=== PATIENT | male | born 1940 | race Caucasian/White ===

== ENCOUNTER 2020-05-05 07:53 | Emergency (ER) | payer OTHER, MEDICARE ==
--- NOTE | 2020-05-05 13:11 | ER ---
REASON FOR EMERGENCY ROOM VISIT: Fever, diarrhea and weakness. HISTORY: This 79-year-old man who has previously been reasonably healthy, was brought in by his daughter with a 3-day history of fever as high as 103 degrees at home along with loose stools and some weakness. He started feeling somewhat punk 3 days ago and subsequently developed some loose stools. He was subsequently noted to have a fever yesterday as high as 103 degrees. It is unclear as to how often he had his loose stools, but he has been eating and drinking throughout all of this with no nausea or vomiting. Because of his illness, he has been more weak than usual and even when he has been well as of late over the past year or so, he has had more of a tendency of fall and to suffer minor falls while at home, although he has never injured himself as a result of these. He did suffer a fall yesterday and hit his forehead and he has had a mild headache in that area ever since. At this time, he states he feels perhaps a little bit better, but he still has some low-grade fever and weakness. It appears that his diarrhea may be slowing down a bit. He has not had any cough or chest pain or other respiratory symptoms. He has had some myalgias. He does have a questionable history of possible cerebrovascular disease as he has suffered what sounds like may have been TIAs a few years ago. Because of these episodes, it was recommended to him that he have a noninvasive carotid study, but he apparently did not follow through with this and did not want to have the test performed. He and his family have done some traveling locally and were camping a week or two ago. No one else in that group has been ill. He has not traveled outside of the [facility]. He has not had any lateralizing weakness or paralysis. He denies any numbness. PAST MEDICAL HISTORY: 1. TIAs as mentioned above. 2. History of appendectomy. 3. Hypercholesterolemia. MEDICATIONS: Reviewed. Please see electronic medical record. They include: 1. Finasteride. 2. Tamsulosin. 3. Simvastatin. ALLERGIES: NONE TO MEDICATIONS. SOCIAL HISTORY: He is retired. Lives with his . He does not smoke or drink. PHYSICAL EXAMINATION: GENERAL: He is reasonably alert. He is somewhat sleepy, but does answer questions appropriately. VITAL SIGNS: Temperature is 38.1, pulse is 80, blood pressure 120/59, O2 sats 94% on room air. Orthostatic blood pressures were checked and there was no significant drop. See nurse's documentation. HEENT: Head is normocephalic and atraumatic. There is no ecchymosis or edema or tenderness. TMs appear to be scarred. No acute process is evident. Oropharynx is normal. Eyes, pupils equally round and reactive to light. No conjunctival injection or scleral icterus. NECK: Supple. No adenopathy. No JVD. He does have a soft left-sided carotid bruit. CHEST: Clear to auscultation with good air exchange bilaterally and no wheezes, rhonchi, or rales. CARDIAC: Regular rate without murmur. ABDOMEN: Seems mildly distended, but is soft. Bowel sounds are present. Nontender. No palpable masses. No guarding or rebound. EXTREMITIES: Normal pulses. No edema. No deformities. Good perfusion with no cyanosis is noted. NEUROLOGIC: Cranial nerves 2 through 12 intact. Muscle strength, bulk, and tone are normal and symmetrical bilaterally in the upper and lower extremities. Patellar reflexes are normal and symmetrical bilaterally. Station and gait were not tested. LABORATORY DATA: His CBC shows a WBC of 4300 with a hemoglobin of 14.1. His platelet count is somewhat low at 106,000. His CMP reveals no significant abnormalities with a sodium of 135 and a mild hypokalemia at 3.3. His CO2 content is 33.9. His glucose is 112. His calcium is 8.0. Liver enzymes are normal. His albumin is 2.9. His UA is unremarkable except he does have some proteinuria. A swab for influenza was negative as was a swab for COVID-19. IMAGING: Because of his falling down and confusion, we went ahead and did a CT scan of his head and no acute abnormalities were found. There is some evidence of cortical atrophy. IMPRESSION: 1. Probable viral illness with fever and loose stools. 2. History of possible transient ischemic attacks with carotid bruit. 3. History of falling down. PLAN: I recommended to the patient and his daughter that he stay on clear liquids. Things like Gatorade or fruit juices are good idea. He should avoid solids for now until his appetite returns and his bowel movements begin to normalize. They can go ahead and treat his fever with ibuprofen or Tylenol, preferably the latter. I think it would be sensible to have him be followed up by Dr. Chairez, and repeat a COVID test would be a good idea. I did discuss briefly the suggestion that a walker be considered going forward with his daughter. All questions were answered. They understand and agree with this plan. IRMA /[id number]
--- NOTE | 2020-05-06 08:44 | CR ---
DATE OF SERVICE: 05/05/20 CLINICAL DATA: fever PA AND LATERAL CHEST: Comparison made to a prior exam dated 12/04/15. The heart size is within normal limits. There is calcification of the aortic arch. There are densities in both lung bases consistent with basilar atelectasis or infiltrate. Pneumonia should be considered. The lungs are otherwise clear. No pneumothorax. No pleural effusions. [id number] [facility]
--- NOTE | 2020-05-06 09:09 | CT ---
DATE OF SERVICE: 05/05/20 CLINICAL DATA: mental status change UNENHANCED BRAIN CT: Multislice acquisition acquisition without IV contrast was performed. There is mild diffuse cerebral atrophy. There are periventricular lucencies bilaterally consistent with small vessel ischemic change. No masses or mass effect. No intracranial hemorrhage. No evidence of acute or subacute infarct. No osseous abnormalities. IMPRESSION: No acute intracranial abnormalities. [id number] [facility]
== END 2020-05-05 11:21 | disposition home or self-care (01) ==
LOC: LB.ED 07:53
DX: R50.9 Fever, unspecified (principal); R19.7 Diarrhea, unspecified; E78.00 Pure hypercholesterolemia, unspecified; Z86.73 Personal history of transient ischemic attack (TIA), and cerebral infarction without residual deficits; Z91.81 History of falling; Z20.828 Contact with and (suspected) exposure to other viral communicable diseases
CPT/HCPCS: 36415; 70450; 71046; 80053; 81001; 85025; 87804; 87804-59; 99283; 99285-25; U0002

== ENCOUNTER 2020-05-15 16:11 | Emergency (ER) | payer OTHER, MEDICARE ==
--- NOTE | 2020-05-15 18:07 | EDM.PDOC ---
ED HPI GENERAL MEDICAL PROBLEM - General Chief Complaint: General Stated Complaint: FEVER WEAKNESS Time Seen by Provider: 05/15/20 17:45 Source of Information: Reports: Patient History Limitations: Reports: No Limitations - History of Present Illness INITIAL COMMENTS - FREE TEXT/NARRATIVE: pt evaluated in the ER for fever and weakness in the setting of Covid19 pandemic, symptoms have been ongoing for 12 days. he arrives with daughter to also provides history. pt was seen in late april and pt was thought to have a viral syndrome at the time. pt states fever, chills, body aches, generalized weakness. daughter states intermittent confusion. Tmax 102 at home. pt denies cough, SOB, pain, lightheadedness, dysuria, hematuria, visual changes, rash. Onset Date: 06/02/19 - Related Data Allergies Allergy/AdvReac Type Severity Reaction Status Date / Time No Known Allergies Allergy Verified 05/05/20 09:40 Home Meds: Home Meds Finasteride 5 mg PO DAILY 05/05/20 [History] Simvastatin [Zocor] 40 mg PO DAILY 05/05/20 [History] Tamsulosin [Tamsulosin 24 Hr] 0.4 mg PO DAILY 05/05/20 [History] Doxycycline [Vibra-Tabs] 100 mg PO Q12HR 10 Days #20 tab 05/15/20 [Rx] Past Medical History Cardiovascular History: Reports: None Respiratory History: Reports: None Gastrointestinal History: Reports: None Genitourinary History: Reports: Prostate Disorder Musculoskeletal History: Reports: Fracture Other Musculoskeletal History: Left shoulder dislocation with clavicle fracture around the age of 41. Neurological History: Reports: None, TIA Endocrine/Metabolic History: Reports: None Oncologic (Cancer) History: Reports: None - Past Surgical History GI Surgical History: Reports: Appendectomy Other Neurological Surgeries/Procedures: ? TIA: approximately one year ago Musculoskeletal Surgical History: Reports: Other (See Below) Other Musculoskeletal Surgeries/Procedures:: back surgery, hand surgery Social & Family History - Family History Family Medical History: Noncontributory - Tobacco Use Smoking Status *Q: Never Smoker Second Hand Smoke Exposure: No - Caffeine Use Caffeine Use: Reports: Coffee - Recreational Drug Use Recreational Drug Use: No ED ROS GENERAL - Review of Systems Review Of Systems: Comprehensive ROS is negative, except as noted in HPI. ED EXAM, GENERAL - Physical Exam Exam: See Below Exam Limited By: No Limitations General Appearance: Alert, WD/WN, No Apparent Distress Eye Exam: Bilateral Eye: EOMI, PERRL Ear Exam: Bilateral Ear: Auricle Normal, Canal Normal, TM normal Nose: Normal Inspection Throat/Mouth: Normal Inspection Head: Atraumatic, Normocephalic Neck: Normal Inspection, Non-Tender Respiratory/Chest: No Respiratory Distress, Lungs Clear, Normal Breath Sounds, No Accessory Muscle Use Cardiovascular: Normal Peripheral Pulses, No Edema, No Gallop, No Murmur, No Rub Peripheral Pulses: 2+: Radial (L), Radial (R), Posterior Tibial (L), Posterior Tibial (R) GI/Abdominal: Normal Bowel Sounds, Soft, Non-Tender, No Organomegaly Extremities: Normal Inspection, Normal Range of Motion, Non-Tender, No Pedal Edema Neurological: Alert, Oriented, CN II-XII Intact, Normal Cognition Psychiatric: Normal Affect, Normal Mood Skin Exam: Warm, Dry, Intact Lymphatic: No Adenopathy Course - Vital Signs Last Recorded V/S: Last Vital Signs Temp 98.7 F 05/15/20 19:09 Pulse 94 05/15/20 19:09 Resp 18 05/15/20 19:09 BP 115/68 05/15/20 19:09 Pulse Ox 96 05/15/20 19:09 - Orders/Labs/Meds Orders: Active Orders 24 hr Category Date Time Status Chest 1V Frontal [CR] Stat Exams 05/15/20 17:55 Taken CULTURE BLOOD [BC] Stat Lab 05/15/20 18:23 Received Labs: Laboratory Tests 05/15/20 05/15/20 05/15/20 Range/Units 16:55 17:55 17:55 WBC 6.9 D (4.0-11.0) K/uL RBC 4.57 (4.50-6.50) M/uL Hgb 14.6 (13.0-18.0) g/dL Hct 42.9 (40.0-54.0) % MCV 94 (76-96) fL MCH 31.9 (27.0-32.0) pg MCHC 34.0 (31.0-35.0) g/dL RDW 13.6 (11.0-16.0) % Plt Count 230 D (150-400) K/uL MPV 8.2 (6.0-10.0) fL Neut % (Auto) 82.0 H (45.0-70.0) % Lymph % (Auto) 11.5 L (20.0-40.0) % [place] % (Auto) 5.5 (3.0-10.0) % Eos % (Auto) 0.1 L (1.0-5.0) % Baso % (Auto) 0.9 H (0.0-0.5) % Neut # (Auto) 5.65 (2.00-7.50) K/uL Lymph # (Auto) 0.79 L (1.50-4.00) K/uL [place] # (Auto) 0.38 (0.20-0.80) K/uL Eos # (Auto) 0.01 L (0.04-0.40) K/uL Baso # (Auto) 0.06 (0.02-0.10) K/uL ESR (0-20) mm/hr Sodium 134 L (136-145) mmol/L Potassium 3.9 (3.5-5.1) mmol/L Chloride 101 (98-107) mmol/L Carbon Dioxide 23.6 D (21.0-32.0) mmol/L Anion Gap 13.3 (5.0-15.0) mmol/L BUN 12 D (8-26) mg/dL Creatinine 0.97 (0.70-1.30) mg/dL Est Cr Clr Drug Dosing 54.60 mL/min Estimated GFR (MDRD) > 60 (>60) MLS/MIN BUN/Creatinine Ratio 12.4 (6-25) Glucose 104 H (74-100) mg/dL Calcium 8.2 L (8.5-10.1) mg/dL Total Bilirubin 0.5 (0.0-1.0) mg/dL AST 18 (15-37) U/L ALT 58 (12-78) U/L Alkaline Phosphatase 56 (46-116) U/L Lactate Dehydrogenase (85-227) U/L C-Reactive Protein 15.7 H (0.0-3.0) mg/L Total Protein 7.0 (6.4-8.2) g/dL Albumin 3.1 L (3.4-5.0) g/dL Globulin 3.9 (2.2-4.2) g/dL Albumin/Globulin Ratio 0.8 (0.8-2.0) Urine Color Urine Appearance (CLEAR) Urine pH (5.0-8.0) Ur Specific [place] (1.003-1.030) Urine Protein (NEGATIVE) mg/dL Urine Glucose (UA) (NEGATIVE) mg/dL Urine Ketones (NEGATIVE) mg/dL Urine Occult Blood (NEGATIVE) Urine Nitrite (NEGATIVE) Urine Bilirubin (NEGATIVE) Urine Urobilinogen (0.2-1.0) E.U./dL Ur Leukocyte Esterase (NEGATIVE) COVID-19 (VJ) Negative 05/15/20 05/15/20 05/15/20 Range/Units 17:56 17:56 19:06 WBC (4.0-11.0) K/uL RBC (4.50-6.50) M/uL Hgb (13.0-18.0) g/dL Hct (40.0-54.0) % MCV (76-96) fL MCH (27.0-32.0) pg MCHC (31.0-35.0) g/dL RDW (11.0-16.0) % Plt Count (150-400) K/uL MPV (6.0-10.0) fL Neut % (Auto) (45.0-70.0) % Lymph % (Auto) (20.0-40.0) % [place] % (Auto) (3.0-10.0) % Eos % (Auto) (1.0-5.0) % Baso % (Auto) (0.0-0.5) % Neut # (Auto) (2.00-7.50) K/uL Lymph # (Auto) (1.50-4.00) K/uL [place] # (Auto) (0.20-0.80) K/uL Eos # (Auto) (0.04-0.40) K/uL Baso # (Auto) (0.02-0.10) K/uL ESR 20 (0-20) mm/hr Sodium (136-145) mmol/L Potassium (3.5-5.1) mmol/L Chloride (98-107) mmol/L Carbon Dioxide (21.0-32.0) mmol/L Anion Gap (5.0-15.0) mmol/L BUN (8-26) mg/dL Creatinine (0.70-1.30) mg/dL Est Cr Clr Drug Dosing mL/min Estimated GFR (MDRD) (>60) MLS/MIN BUN/Creatinine Ratio (6-25) Glucose (74-100) mg/dL Calcium (8.5-10.1) mg/dL Total Bilirubin (0.0-1.0) mg/dL AST (15-37) U/L ALT (12-78) U/L Alkaline Phosphatase (46-116) U/L Lactate Dehydrogenase 287 H (85-227) U/L C-Reactive Protein (0.0-3.0) mg/L Total Protein (6.4-8.2) g/dL Albumin (3.4-5.0) g/dL Globulin (2.2-4.2) g/dL Albumin/Globulin Ratio (0.8-2.0) Urine Color Yellow Urine Appearance Clear (CLEAR) Urine pH 5.0 (5.0-8.0) Ur Specific [place] >= 1.030 (1.003-1.030) Urine Protein Negative (NEGATIVE) mg/dL Urine Glucose (UA) Negative (NEGATIVE) mg/dL Urine Ketones Negative (NEGATIVE) mg/dL Urine Occult Blood Negative (NEGATIVE) Urine Nitrite Negative (NEGATIVE) Urine Bilirubin Negative (NEGATIVE) Urine Urobilinogen 0.2 (0.2-1.0) E.U./dL Ur Leukocyte Esterase Negative (NEGATIVE) COVID-19 (VJ) - Re-Assessments/Exams Free Text/Narrative Re-Assessment/Exam: 05/15/20 17:40 pt evaluated with COVID test which was negative Departure - Departure Time of Disposition: 19:24 Disposition: Home, Self-Care 01 Condition: Fair Clinical Impression: Acute Lyme disease - Discharge Information *PRESCRIPTION DRUG MONITORING PROGRAM REVIEWED*: Not Applicable *COPY OF PRESCRIPTION DRUG MONITORING REPORT IN PATIENT SHMUEL: Not Applicable Prescriptions: Doxycycline [Vibra-Tabs] 100 mg PO Q12HR 10 Days #20 tab Forms: ED Department Discharge Additional Instructions: follow up in the clinic in 1-2 weeks whether fever or not doxycycline 100mg twice daily (stay out of sun when able as sunburn can be way worse than normal, wear sunglasses when outside) monitor for more tick bites drink at least 100oz of water a day if fever lasts for more than 3 weeks you will definitely need more testing, although some was done in the ER. that testing may be done through the clinic. Sepsis Event Note (ED) - Evaluation Sepsis Screening Result: No Definite Risk - Focused Exam Vital Signs: Vital Signs Temp Pulse Resp BP Pulse Ox 05/15/20 19:09 98.7 F 94 18 115/68 96 05/15/20 18:40 93 96 05/15/20 18:29 91 20 98 05/15/20 18:20 99.9 F 89 95 05/15/20 17:57 100.7 F H 90 96 05/15/20 17:43 100 F 87 18 132/73 96 - Problem List Review Problem List Initiated/Reviewed/Updated: Yes - My Orders Last 24 Hours: My Active Orders 05/15/20 17:55 Chest 1V Frontal [CR] Stat 05/15/20 18:23 CULTURE BLOOD [BC] Stat - Assessment/Plan Last 24 Hours: My Active Orders 05/15/20 17:55 Chest 1V Frontal [CR] Stat 05/15/20 18:23 CULTURE BLOOD [BC] Stat Assessment:: assessment: will treat as lymes due to pts history of outdoor activity in endemic area. cannot rule out FUO but fever has not lasted over 2 or 3 weeks. fever could still possibly be caused by more nefarious origins such as oncologic or infectious plan: treat with doxy 100mg BID x10 days follow up in clinic in 1-2 weeks for recheck, referrals or more testing as needed at the time. drink more water.
[2020-05-15] MEDS ORDERED: Doxycycline 100 MG Cap PO ONE (19:26)
--- NOTE | 2020-05-15 22:13 | CR ---
CLINICAL DATA: Fever unknown origin. AP CHEST, 15 MAY 2020: Comparison is made to a prior exam dated 05 May 2020. The heart size is within normal limits. There is calcification of the aortic arch. The lungs appear clear. No pneumothorax. No pleural effusions. Job: [id number] MTDD
== END 2020-05-15 19:42 | disposition home or self-care (01) ==
LOC: LB.ED 16:11
DX: A69.20 Lyme disease, unspecified (principal); Z20.828 Contact with and (suspected) exposure to other viral communicable diseases; Z86.73 Personal history of transient ischemic attack (TIA), and cerebral infarction without residual deficits; Z79.899 Other long term (current) drug therapy
CPT/HCPCS: 36415; 71045; 80053; 81003; 83615; 85025; 85651; 86140; 87040; 99285-25; A9270-GY; U0002

== ENCOUNTER 2022-03-05 11:08 | Day surgery (SDC) | payer OTHER ==
[~2022-03-05 11:08] MED LIST: Metoclopramide 10 MG/2 ML SDV IV PRN; Sodium Chloride 0.9% 1,000 ML IV SCH
[2022-03-05] MEDS ORDERED: Propofol 1,000 MG/100 ML SDV ONE (13:30)
== END 2022-03-05 14:30 | disposition home or self-care (01) ==
LOC: LB.SDS 11:08
PROVIDERS: ATTEND Surgery
DX: Z12.11 Encounter for screening for malignant neoplasm of colon (principal); Z79.899 Other long term (current) drug therapy
CPT/HCPCS: 45378; J2704; J7030

== ENCOUNTER 2023-12-21 16:31 | Observation (INO) | payer OTHER ==
[2023-12-21] MEDS: Sodium Chloride 0.9% 1,000 ML IV ONE (18:20)
[2023-12-21] MEDS ORDERED: Sodium Chloride 0.9% 10 ML Syringe FLUSH PRN (18:21)
[2023-12-21] MEDS: Acetaminophen 325 MG Tab PO PRN (18:22)
[2023-12-21] MEDS: Acetaminophen 325 MG Tab ONE (18:23)
[2023-12-21] MEDS: Oseltamivir 75 MG Cap PO SCH (18:28)
[2023-12-21] MEDS: cefTRIAXone 1 GM in Sodium Chloride 0.9% 50 ML IV SCH (18:30)
[2023-12-21] MEDS: cefTRIAXone 1 GM Vial ONE (18:37)
[2023-12-21] MEDS: Azithromycin 500 MG in Sodium Chloride 0.9% 250 ML IV SCH (18:54)
[2023-12-21] MEDS: Sodium Chloride 0.9% 1,000 ML IV SCH (21:10)
[2023-12-22] MEDS: Simvastatin 10 MG Tab PO SCH (07:26)
[2023-12-22] MEDS: Metoprolol Tartrate 25 MG Tab PO SCH (07:27)
[2023-12-22] MEDS: Finasteride 5 MG Tab PO SCH (07:27)
[2023-12-22] MEDS ORDERED: Furosemide 20 MG Tab PO PRN (08:00)
[2023-12-22 08:06] LABS: BASOPHILS ABSOLUTE AUTO 0.03 K/uL (0.02-0.10); BASOPHILS PERCENT AUTO 0.4 % (0.0-0.5); EOSINOPHILS ABSOLUTE AUTO 0.01 K/uL (0.04-0.40); EOSINOPHILS PERCENT AUTO 0.1 % (1.0-5.0); HEMATOCRIT 37.3 % (40.0-54.0); HEMOGLOBIN 13.1 g/dL (13.0-18.0); LYMPHOCYTES ABSOLUTE AUTO 0.76 K/uL (1.50-4.00); LYMPHOCYTES PERCENT AUTO 10.7 % (20.0-40.0); MEAN CORPUSCULAR HEMOGLOBIN 31.5 pg (27.0-32.0); MEAN CORPUSCULAR HGB CONC 35.1 g/dL (31.0-35.0); MEAN CORPUSCULAR VOLUME 90 fL (76-96); MEAN PLATELET VOLUME 8.8 fL (6.0-10.0); MONOCYTES ABSOLUTE AUTO 0.41 K/uL (0.20-0.80); MONOCYTES PERCENT AUTO 5.8 % (3.0-10.0); NEUTROPHILS ABSOLUTE AUTO 5.86 K/uL (2.00-7.50); PLATELET COUNT,PLT 173 K/uL (150-400); RED BLOOD CELL COUNT 4.16 M/uL (4.50-6.50); RED CELL DISTRIBUTION WIDTH 15.1 % (11.0-16.0); WHITE BLOOD CELL COUNT,WBC 7.1 K/uL (4.0-11.0)
[2023-12-22 08:24] LABS: ANION GAP 13.7 mmol/L (5.0-15.0); BUN/CREATININE RATIO 10.9 (6-25); CALCIUM 7.8 mg/dL (8.5-10.1); CARBON DIOXIDE,CO2 24.2 mmol/L (21.0-32.0); CREATININE 1.01 mg/dL (0.70-1.30); EST CRCL DRUG DOSING (CG) 49.05 mL/min; POTASSIUM,K 3.9 mmol/L (3.5-5.1)
[2023-12-22] MEDS: Oseltamivir 30 MG Cap PO SCH (11:10)
[2023-12-22] MEDS: Oseltamivir 75 MG Cap PO ONE (11:11)
[2023-12-23] MEDS: Oseltamivir 75 MG Cap PO ONE (10:06)
[2023-12-23] MEDS ORDERED: Oseltamivir 30 MG Cap PO SCH (20:00)
== END 2023-12-23 10:18 | disposition home or self-care (01) ==
LOC: LB.ED 16:31 → LB.MS 19:00
PROVIDERS: ADMIT Emergency Medicine; ATTEND Emergency Medicine
DX: J10.1 Influenza due to other identified influenza virus with other respiratory manifestations (principal); Z98.890 Other specified postprocedural states; Z87.891 Personal history of nicotine dependence; Z79.899 Other long term (current) drug therapy
CPT/HCPCS: 36415; 80048; 85025; 96361; 96365; 99222; 99231; 99238; 99285; A9270-GY; G0378; J0456; J0696; J3490; J7030; J7050

== ENCOUNTER 2025-08-31 15:21 | Emergency (ER) | payer MEDICARE, OTHER ==
[2025-08-31] MEDS: Ketorolac 30 MG/ML SDV IM ONE (16:13)
[2025-08-31] MEDS ORDERED: Acetaminophen/oxyCODONE 325-5 MG Tab ONE ×2 (16:30)
== END 2025-08-31 16:40 | disposition home or self-care (01) ==
LOC: LB.ED 15:21
DX: S20.212A Contusion of left front wall of thorax, initial encounter (principal); I10 Essential (primary) hypertension; W01.198A Fall on same level from slipping, tripping and stumbling with subsequent striking against other object, initial encounter
CPT/HCPCS: 71046; 96372; 99283; A0425; A0429; A9270-GY; J1885